=== PATIENT | female | born 1960 ===

== ENCOUNTER 2025-02-21 06:30 | Day surgery (SDC) | payer BC, SELFPAY | END 2025-02-21 12:00 | disposition home or self-care (01) | LOC: GI 06:30 | PROVIDERS: ATTENDING PHYSICIAN Internal Medicine Gastroenterology | DX: Z12.11 Encounter for screening for malignant neoplasm of colon (principal); K57.30 Diverticulosis of large intestine without perforation or abscess without bleeding; K64.8 Other hemorrhoids; R12 Heartburn; Z83.719 Family history of colon polyps, unspecified | CPT/HCPCS: 43235; G0105 ==